=== PATIENT | male | born 1980 | race Caucasian/White ===

== ENCOUNTER → 2017-12-22 | Outpatient (CLI) | payer OTHER ==
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
== END | disposition home or self-care (01) ==
LOC: SLEEP 15:59
PROVIDERS: ATTEND Internal Medicine
DX: G47.10 Hypersomnia, unspecified (principal); G47.33 Obstructive sleep apnea (adult) (pediatric); T78.40XA Allergy, unspecified, initial encounter; Z87.891 Personal history of nicotine dependence; Z79.899 Other long term (current) drug therapy
CPT/HCPCS: 99211

== ENCOUNTER → 2018-04-20 | Outpatient (CLI) | payer OTHER ==
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
== END | disposition home or self-care (01) ==
LOC: SLEEP 16:45
PROVIDERS: ATTEND Internal Medicine
DX: G47.10 Hypersomnia, unspecified (principal); Z88.9 Allergy status to unspecified drugs, medicaments and biological substances; Z79.899 Other long term (current) drug therapy

== ENCOUNTER 2019-02-28 06:33 | Day surgery (SDC) | payer OTHER ==
[2019-02-22 18:28] VITALS: BMI 27.5
[~2019-02-28 06:33] MED LIST: DEXAMETHASONE SOD PHOSPHATE 10 MG/ML 1 ML VIAL IV ONE; DEXAMETHASONE SOD PHOSPHATE 4 MG/ML 1 ML VIAL IV ONE; FAMOTIDINE 20 MG/2 ML VIAL IV ONE; LACTATED RINGERS 1,000 ML IV SCH; LIDOCAINE 1% 20 ML VIAL (10MG/ML) FOR IV START INTRADERMA PRN; MIDAZOLAM 2 MG/2 ML VIAL IV PRN; ONDANSETRON 4 MG/2 ML VIAL IVP ONE; fentaNYL (PF) 50 MCG/ML 2 ML AMP IV PRN
[2019-02-28] MEDS: OXYMETAZOLINE 0.05% NASL SPRAY 1 SPRAY BOTTLE NASAL ONE ×4 (07:05→07:30)
[2019-02-28] MEDS ORDERED: PROPOFOL 10 MG/ML 20 ML VIAL IV ONE (08:18)
[2019-02-28] MEDS ORDERED: NEOSTIGMINE 1 MG/ML 10 ML VIAL ONE (08:18)
[2019-02-28] MEDS ORDERED: fentaNYL (PF) 50 MCG/ML 2 ML AMP ONE (08:18)
[2019-02-28] MEDS ORDERED: MIDAZOLAM 2 MG/2 ML VIAL ONE (08:18)
[2019-02-28] MEDS ORDERED: GLYCOPYRROLATE 0.2 MG/ML 2 ML VIAL ONE (08:18)
[2019-02-28] MEDS ORDERED: ROCURONIUM BROMIDE 10 MG/ML 10 ML VIAL IV ONE (08:18)
[2019-02-28] MEDS ORDERED: LIDOCAINE 1% INJ 10MG/ML (20 ML MDV) ONE (08:18)
[2019-02-28] MEDS ORDERED: SUCCINYLCHOLINE CHLORIDE 100 MG/5 ML SYR IV ONE (08:18)
[2019-02-28] MEDS ORDERED: LIDOCAINE 1%-EPI 1:100,000 20 ML VIAL SQ ONE ×2 (08:37)
--- NOTE | 2019-02-28 09:05 | P.OP ---
Date of Procedure: 02/28/19 Preoperative Diagnosis: Deviated nasal septum Inferior turbinate hypertrophy Postoperative Diagnosis: Same Procedure(s) Performed: Septoplasty Outfracture and submucous resection of the inferior turbinates Anesthesia: ENDYA Surgeon: Levy Padilla Estimated Blood Loss (ml): 5 Pathology: other (Nasal septal bone and cartilage) Condition: stable Disposition: PACU Indications for Procedure: This is a 38-year-old white male with chronic nasal airway obstruction persisting despite medical management Operative Findings: Nasal septum deviated to the right in the cartilaginous and bony septum, inferior turbinate hypertrophy bilateral Description of Procedure: The patient was brought in the operative suite and placed in a supine position. The patient underwent induction of general anesthesia with oral endotracheal intubation without difficulty. The patient was prepped and draped in usual aseptic fashion. 1% lidocaine with 1-100,000 epinephrine was infused submucosally both sides nasal septum. While this was taking vasoconstrictive effect the inferior turbinates were infractured with [place] elevator. Partial submucous resection inferior turbinates was performed with Coblator this ablating a portion of the submucosal soft tissue and then outfractured with the [place] elevator. A left hemitransfixion incision was made with the mucoperichondrial mucopus a flap on left elevated. Bony cartilaginous junction was disarticulated and the compression flap on the right was elevated. Bony nasal septal deformities were removed [place] forceps. An inferior cartilaginous strip was removed leaving a full 1.5 cm caudal strut. Checking intranasally this corrected the nasoseptal deformities and the hemitransfixion incision was closed with a running 4-0 chromic suture. Bilateral Zhang airway splints coated bacitracin ointment were placed in nasal cavities and sutured trans-septally with a 4-0 Vicryl suture. The patient was suctioned in oral gastric fashion. The patient was allowed to emerge from general anesthesia having tolerated procedure well and was extubated in the operating suite and transferred to the postop recovery area in satisfactory condition.
[2019-02-28 09:23] VITALS: RESP 16; TEMP 97.4
[2019-02-28 10:25] VITALS: BP 149/83; PULSE 49
== END 2019-02-28 10:54 | disposition home or self-care (01) ==
LOC: OR 06:33
PROVIDERS: ATTEND Otolaryngology
DX: J34.2 Deviated nasal septum (principal); J34.3 Hypertrophy of nasal turbinates; F17.200 Nicotine dependence, unspecified, uncomplicated; Z79.899 Other long term (current) drug therapy; Z83.3 Family history of diabetes mellitus; Z91.048 Other nonmedicinal substance allergy status
CPT/HCPCS: 88300; 30140; 30520; J2250; J1100; J2710; J2405; J2001; J3010; J0330; J2704